=== PATIENT | male | born 1935 | race Caucasian/White ===

== ENCOUNTER 2016-08-11 11:27 | Emergency (ER) | payer MEDICARE, OTHER ==
[~2016-08-11 11:27] MED LIST: ADULT ASPIRIN81 MG PO; ALPRAZOLAM0.25 MG; AMIGESIC750 MG; ASPIR-LOW81 MG; ATENOLOL25 MG; AUGMENTIN 875-11 TAB PO; BYSTOLIC10 MG PO; DOCUSATE CALCI100 MG PO; FLOVENT RO50 MCG/DIS IH; FLUNISOLIDE25 M1; FUROSEMIDE20 MG PO; HYDROCHLOROTH12.5 MG; HYDROXYZINE HCL25 MG PO; LESCOL40 MG; LUNESTA3 MG; MAGNESIUM250 MG PO; NORVASC10 MG PO; OMEPRAZOLE20 MG PO; PAROXETINE HCL40 MG PO; PAXIL40 MG; PRAVACHOL40 MG PO; PRILOSEC10 MG; SALSALATE750 MG PO; SYNTHROID112 MCG PO; SYNTHROID125 MCG
[2016-08-11] MEDS ORDERED: MYSOLINE50 M3 PO (11:41)
[2016-08-11] MEDS ORDERED: PROAIR HFA8.5 GM INH (11:52)
[2016-08-11] MEDS ORDERED: VITAMIN D-32000 UNI4 PO (11:52)
[2016-08-11] MEDS ORDERED: NORVASC10 M2 PO (11:52)
[2016-08-11] MEDS ORDERED: LASIX20 M1 PO (11:53)
[2016-08-11] MEDS ORDERED: FLONASE ALLERG9.9 ML (11:53)
[2016-08-11] MEDS ORDERED: SYNTHROID112 MC1 PO (11:54)
[2016-08-11] MEDS ORDERED: HYDROXYZINE HCL25 M1 PO (11:54)
[2016-08-11] MEDS ORDERED: ASMANEX220 MC1 INH (11:55)
[2016-08-11] MEDS ORDERED: OMEPRAZOLE20 M3 PO (11:56)
[2016-08-11] MEDS ORDERED: SPIRIVA18 MC1 INH (11:56)
[2016-08-11] MEDS ORDERED: PAXIL40 M1 PO (11:56)
[2016-08-11] MEDS ORDERED: PRAVACHOL40 M1 PO (11:56)
[2016-08-11] MEDS ORDERED: COLACE100 M1 PO (11:57)
[2016-08-11] MEDS ORDERED: ASPIRIN EC81 MG PO (11:57)
[2016-08-11] MEDS ORDERED: MAGNESIUM250 M2 PO (11:58)
[2016-08-11] MEDS ORDERED: IBUPROFEN100 M2 PO (12:01)
[2016-08-11] MEDS ORDERED: MELATONIN3 M4 PO (12:02)
[2016-08-11] MEDS ORDERED: XANAX0.25 M1 PO (12:02)
[2016-08-11 13:08] LABS: BASO % 0.5 % (0-2); BASO ABSOLUTE COUNT 0.1 tho/cmm (0.0-0.2); EOS % 3.4 % (0-7); EOSINOPHIL ABSOLUTE COUNT 0.3 tho/cmm (0.0-0.7); HCT-HEMATOCRIT 42.6 % (36.0-53.5); HGB-HEMOGLOBIN 14.6 gm/dl (13.5-17.0); IMMATURE GRANULOCYTES ABSOLUTE 0.04 tho/cmm (0-0.03); IMMATURE GRANULOCYTES PERCENT 0.4 % (0-0.3); LYMPH % 33.8 % (20-45); LYMPH ABSOLUTE COUNT 3.2 tho/cmm (0.8-4.5); MCH (MEAN CORPUSCULAR HGB) 31.3 pg (28.0-32.0); MCHC MEAN CORPUSCULAR HGB CONC 34.3 % (32.0-36.0); MCV (MEAN CELL VOLUME) 91.4 fl (82.0-96.0); MEAN PLATELET VOLUME 10.2 cmc (9.4-12.4); MONO % 11.5 % (0-12); MONOCYTE ABSOLUTE COUNT 1.1 tho/cmm (0.0-1.2); NEUTROPHIL ABSOLUTE COUNT 4.8 tho/cmm (1.6-8.0); NEUTROPHIL-AUTOMATED 4.8 tho/cmm (1.6-8.0); NEUTROPHILS % 50.4 % (40-80); PLATELET COUNT 217 tho/cmm (150-450); RED BLOOD COUNT 4.66 mil/cmm (4.40-5.70); WHITE BLOOD COUNT 9.6 tho/cmm (4.0-10.0)
[2016-08-11 13:26] LABS: ALB/GLOB RATIO 0.8 (0.8-2.0); ALBUMIN 3.3 g/dl (3.5-5.0); ALKALINE PHOSPHATASE 80 U/L (33-138); ALT/SGPT 24 U/L (12-78); ANION GAP 14 mmol/L (0-20); AST/SGOT 14 U/L (10-40); BILIRUBIN,DIRECT 0.1 mg/dl (0.0-0.3); BILIRUBIN,INDIRECT 0.6 mg/dL (0.0-1.0); BILIRUBIN,TOTAL 0.7 mg/dl (0.0-1.5); BLOOD UREA NITROGEN 24 mg/dl (6-24); CALCIUM 8.5 mg/dl (8.5-10.5); CARBON DIOXIDE-VENOUS 26 mmol/L (22-32); CHLORIDE 105 mmol/l (96-110); CREATININE 1.24 mg/dl (0.60-1.30); GLUCOSE 97 mg/dL (70-110); LIPASE 142 U/L (73-393); POTASSIUM 3.7 mmol/L (3.7-5.1); SODIUM 141 mmol/L (135-145); eGFR VALUE FOR BLACK 63 mL/Min
== END 2016-08-11 15:31 ==
LOC: EDMED 11:27
PROVIDERS: Emergency Medicine
DX: R07.9 Chest pain, unspecified (principal); I10 Essential (primary) hypertension; E78.5 Hyperlipidemia, unspecified; E03.9 Hypothyroidism, unspecified; J44.9 Chronic obstructive pulmonary disease, unspecified; Z87.891 Personal history of nicotine dependence; Z79.82 Long term (current) use of aspirin; Z79.51 Long term (current) use of inhaled steroids; Z79.890 Hormone replacement therapy; Z79.899 Other long term (current) drug therapy
CPT/HCPCS: Q9967